=== PATIENT | male | born 1980 | race Caucasian/White ===

== ENCOUNTER 2023-10-11 20:26 | Outpatient (CLI) | payer OTHER | END 2023-10-11 20:27 | disposition critical access hospital (66) | LOC: EMS 20:26 | DX: S61.451A Open bite of right hand, initial encounter (principal); W54.0XXA Bitten by dog, initial encounter | CPT/HCPCS: A0425; A0429 ==

== ENCOUNTER 2023-10-11 20:55 | Emergency (ER) | payer OTHER ==
[2023-10-11] MEDS ORDERED: AMOX/CLAV 875 MG/125 MG TABLET PO STA (21:05)
[2023-10-11] MEDS ORDERED: HYDROcod/ACETAM 5/325 MG TABLET PO STA (21:05)
[2023-10-11] MEDS ORDERED: IBUPROFEN 800 MG TABLET PO STA (21:05)
--- NOTE | 2023-10-11 21:06 | ED Physician Documentation ---
History of Present Illness - Stated complaint Stated Complaint: RT HAND DOG BITE - History obtained from History obtained from: Patient - Additonal information Additional information: Otherwise healthy 43-year-old gentleman who is up-to-date on tetanus got bitten while breaking up a fight between 2 of his dogs at home just prior to arrival. Pain is severe. Several puncture wounds on the right hand. No other injuries. Dogs are fully immunized as well. PD PAST MEDICAL HISTORY - Present Medications Home Medications: Ambulatory Orders Medication Instructions Recorded Confirmed Amox/Clav 875/125 [Augmentin] 1 each PO Q12H #14 tablet 10/11/23 Bacitracin Zinc Oint 1 applic TOP BID #1 each 10/11/23 HYDROcod/ACETAM 5/325 [Idanha 5/325] 1 - 2 tab PO Q6H PRN #15 tablet 10/11/23 - Allergies Allergies/Adverse Reactions: Allergies Allergy/AdvReac Type Severity Reaction Status Date / Time No Known Drug Allergies Allergy Verified 10/11/23 21:05 PD ED PE NORMAL - Vitals Vital signs reviewed: Yes - General General: Alert and oriented X 3, No acute distress - Derm Derm: Normal color, Warm and dry - Extremities Extremities: Other (There is a puncture wound on the thenar musculature, 1 on the dorsal thumb, 1 in the first dorsal webspace of the right hand. He is tender in those areas but has full range of motion without distal neurovascular compromise.) - Neuro Neuro: Alert and oriented X 3, Normal speech Results - Vitals Vitals: Vital Signs - 24 hr 10/11/23 21:05 Temperature 36.5 C Heart Rate 88 Respiratory 16 Rate Blood Pressure 138/88 H O2 Saturation 98 Oxygen O2 Source Room air - Rads (name of study) R hand XR Relevant Findings:: Final report received, EMP independent interpretation of test PD Medical Decision Making - ED course ED course: Wounds were irrigated and evaluated. None needs suturing. He was started on Augmentin and pain control with 2 Vicodin and Motrin. Hand x-ray ordered. Right hand x-ray was negative, wounds were dressed with Xeroform and wrapped and he was counseled on wound care. Also return precautions and follow-up. Departure - Departure Disposition: 01 Home, Self Care Clinical Impression: Animal bite with open wound Condition: Good Record reviewed to determine appropriate education?: Yes Instructions: ED Wound Care Prescriptions: Amox/Clav 875/125 [Augmentin] 1 each PO Q12H #14 tablet Bacitracin Zinc Oint 1 applic TOP BID #1 each HYDROcod/ACETAM 5/325 [Idanha 5/325] 1 - 2 tab PO Q6H PRN #15 tablet PRN Reason: Pain Comments: You can wash the wounds briefly with soap and water once a day, then apply the bacitracin ointment and a nonstick dressing and a loose wrap. Keep an eye for signs of infection return if you develop redness, swelling, drainage, fevers. I sent a prescription for the antibiotics, pain medication, and antibiotic ointment to the [facility] in [place]. Reasonable to have your doctor do a wound check or Tuesday. Call for an appointment. I am prescribing a short course of narcotic pain medication for you. These are potentially dangerous and addictive medications that should be used carefully. These medications may constipate you. Take an ypjh-jin-epimuen stool softener (docusate) twice daily with plenty of water while taking these medications. If you go 24 hours without a bowel movement, take ubnx-ekd-kzhuhet miralax, per package instructions. Do not drink or drive while taking these medications. If you received narcotic or sedating medications while in the emergency department, do not drive for 24 hours. Store this medication in a safe, secure place and out of reach of children. It is a violation of federal law to give or sell this medication to another person or to use in a manner other than prescribed. The ED will not refill narcotic prescriptions, including prescriptions lost or stolen. To dispose of unwanted medications: 1. [facility] provides a drop box for medication in pill form only (no liquids) 8:00 am to 4:30 p.m. Tuesday-Tuesday in the lobby of the [facility] [place], [address] [place] [address]. Empty pills into ziplock bag before disposal. Call [phone] for information. 2.[employer] is a free service available to all [facility] residents. Go to [email or web address] Note that many narcotic pain relievers also contain Tylenol/acetaminophen. Please ensure that your total dose of acetaminophen from all sources does not exceed 3 g (3000 mg) per day. Forms: PCP List Discharge Date/Time: 10/11/23 21:53
[2023-10-11 21:11] VITALS: BP 138/88; O2SAT 98
[2023-10-11] MEDS ORDERED: HYDROcod/ACET 5/325 Prepack 4 PO STA (21:43)
--- NOTE | 2023-10-11 22:01 | XRAY Report ---
PROCEDURE: Hand 3 View RT INDICATIONS: dog bites TECHNIQUE: 3 views of the hand(s) acquired. COMPARISON: None. FINDINGS: Bones: No fractures or dislocations. No suspicious bony lesions. Soft tissues: No suspicious soft tissue calcifications or masses. No radiopaque foreign body. IMPRESSION: No acute bony abnormality identified. Reviewed by: Baron Moore MD on 10/11/2023 10:00 PM [facility] [[email or web address]] Approved by: Baron Moore MD on 10/11/2023 10:00 PM PST Station ID: [id number]
== END 2023-10-11 21:53 | disposition home or self-care (01) ==
LOC: EDUNIT# → ED 20:55
DX: S61.451A Open bite of right hand, initial encounter (principal); W54.0XXA Bitten by dog, initial encounter
CPT/HCPCS: 73130; 99283; 99284; A9270